=== PATIENT | female | born 1990 | race Caucasian/White ===

== ENCOUNTER → 2017-04-02 | Outpatient (REF) | payer OTHER | LOC: M LAB REF 21:54 | PROVIDERS: ATTEND Physician Assistant | DX: J02.9 Acute pharyngitis, unspecified (principal) ==

== ENCOUNTER → 2017-05-14 | Outpatient (CLI) | payer OTHER ==
--- NOTE | 2017-05-14 13:04 | REP ---
MRA HEAD WITHOUT CONTRAST: HISTORY: Headache. 3D [id number] MR angiography was performed at the level of the lower brule of [place]. There is no aneurysm, arteriovenous malformation, or atherosclerotic lesion. Major intracranial vessels are patent. The right vertebral artery is dominant. IMPRESSION: Normal MRA brain. Signed by Terrance Welch MD 05/14/2017 01:11 P
== END ==
LOC: M RAD 08:27
PROVIDERS: ATTEND Physician Assistant
DX: R51 Headache (principal)

== ENCOUNTER 2024-02-11 08:16 | Day surgery (SDC) | payer OTHER ==
[~2024-02-11] VITALS: Ht 160 cm; Wt 66.8 kg
[2024-02-11] MEDS: OXYMETAZOLINE 0.05% NASAL SPRAY (AFRIN) As Ordered ONE (09:15)
[2024-02-11] MEDS ORDERED: MIDAZOLAM INJ 2MG/2ML VIAL As Ordered ONE (09:39)
[2024-02-11] MEDS ORDERED: LIDOCAINE 2% 100MG/5ML SDV (FOR ANES.) As Ordered ONE (09:40)
[2024-02-11] MEDS ORDERED: fentaNYL 100 MCG/2 ML INJECTION As Ordered ONE (09:40)
[2024-02-11] MEDS ORDERED: dexmedeTOMIDine (4MCG/ML)200MCG/50ML BTL (PRECEDEX) As Ordered ONE (10:00)
[2024-02-11] MEDS ORDERED: ONDANSETRON 4MG 2ML VIAL As Ordered ONE (10:00)
[2024-02-11] MEDS ORDERED: ACETAMINOPHEN 1000MG 100ML IV BAG As Ordered ONE (10:01)
[2024-02-11] MEDS ORDERED: LABETALOL 100MG/20ML VIAL As Ordered ONE (10:03)
[2024-02-11] MEDS ORDERED: SUGAMMADEX SODIUM 500 MG/5 ML VIAL (BRIDION) As Ordered ONE (10:12)
[2024-02-11] MEDS ORDERED: propofoL 200 MG/20 ML VIAL As Ordered ONE (10:12)
[2024-02-11] MEDS ORDERED: oxyCODONE 5MG TAB PO PRN (10:30)
[2024-02-11] MEDS ORDERED: fentaNYL 100 MCG/2 ML INJECTION IV PRN (10:30)
[2024-02-11] MEDS ORDERED: ONDANSETRON 4MG 2ML VIAL IV PRN (10:30)
[2024-02-11 11:12] VITALS: BP 112/70; TEMP 98.1; O2SAT 98
== END 2024-02-11 12:52 | disposition home or self-care (01) ==
LOC: M SDC 08:16
PROVIDERS: ATTEND Otolaryngology
DX: J35.1 Hypertrophy of tonsils (principal); K58.9 Irritable bowel syndrome, unspecified
CPT/HCPCS: 42826; 81025; 88302; J0131; J1100; J1920; J2250; J2405; J3010